=== PATIENT | female | born 1960 | race Caucasian/White ===

== ENCOUNTER 2018-05-05 12:08 | Emergency (ER) | payer OTHER, BC ==
[~2018-05-05] VITALS: Ht 167.6 cm; Wt 102.1 kg
[~2018-05-05 12:08] MED LIST: ALORA TD; HYDR-3714 PO; MELO-195 PO; OMEP20CA12 PO; TRAM50TA2 PO; [UNRECOGNIZED DRUG - OTHER]
--- OUTSIDE RECORDS SUMMARY | 2018-05-05 13:25 | XMS REPORT | Continuity of Care Document ---
Author Author [facility] Organization [facility] Address Unknown Phone Unavailable Allergies Active Description Code Type Severity Reaction Onset Reported/Identified Relationship to Patient Clinical Status Yes No Known Drug Allergies [id number] Drug Allergy Unknown N/A 12/23/2009 Medications There is no data. Problems Date Dx Coded Attending Type Code Diagnosis Diagnosed By 12/29/2009 Ot 726.10 12/29/2009 Ot 727.61 04/10/2010 Ot 401.9 04/10/2010 Ot 719.41 04/10/2010 Ot V57.1 04/10/2010 Ot V58.43 08/18/2012 Ot 455.0 08/18/2012 Ot 455.3 08/18/2012 Ot 530.11 08/18/2012 Ot 535.40 08/18/2012 Ot 562.10 08/18/2012 Ot 792.1 08/18/2012 Ot V16.0 08/18/2012 Ot V76.51 07/02/2013 CHHAYA DIAZ MD Ot 717.7 01/07/2014 CHHAYA DIAZ MD Ot 717.7 01/07/2014 CHHAYA DIAZ MD Ot 727.83 04/11/2015 Ot 715.91 04/11/2015 Ot 719.41 04/11/2015 Ot 959.9 04/11/2015 Ot E000.8 04/11/2015 Ot E030 04/11/2015 Ot E849.0 04/11/2015 Ot E888.9 04/11/2015 Ot 727.61 04/11/2015 Ot V72.83 04/11/2015 Ot V74.8 04/11/2015 Ot 620.9 04/11/2015 Ot 626.2 04/11/2015 Ot 793.5 04/11/2015 Ot V76.12 04/11/2015 Ot 625.8 04/11/2015 Ot V72.84 04/11/2015 CHHAYA DIAZ MD Ot 717.7 04/11/2015 CHHAYA DIAZ MD Ot V72.84 04/11/2015 CHHAYA DIAZ MD Ot V74.8 04/11/2015 CHHAYA DIAZ MD Ot 717.9 04/11/2015 CHHAYA DIAZ MD Ot 733.92 04/11/2015 CHHAYA DIAZ MD Ot V72.83 04/11/2015 CHHAYA DIAZ MD Ot V74.8 Procedures There is no data. Results There is no data. Encounters ACCT No. Visit Date/Time Discharge Status Pt. Type Provider Facility Loc./Unit Complaint [id number] 02/05/2015 15:19:00 02/05/2015 23:59:59 CLS Outpatient JONATHAN CATALAN [facility] OCC FELL INJURED KNEE [id number] 01/07/2014 06:09:00 01/07/2014 10:15:00 DIS Outpatient CHHAYA DIAZ MD [facility] [id number] 01/01/2014 08:08:00 01/01/2014 23:59:59 CLS Outpatient REVEAL CHHAYA MORALES [facility] PREOP [id number] 12/10/2013 16:26:00 12/10/2013 23:59:59 CLS Outpatient [id number] 07/02/2013 07:49:00 07/02/2013 14:15:00 DIS Outpatient CHHAYA DIAZ MD [facility] [id number] 06/25/2013 08:08:00 06/25/2013 23:59:59 CLS Outpatient REVEAL CHHAAY MORALES [facility] PREOP [id number] 05/31/2013 15:20:00 05/31/2013 23:59:59 CLS Outpatient [id number] 05/09/2013 15:40:00 05/09/2013 23:59:59 CLS Outpatient [id number] 04/11/2015 09:53:00 Document Registration [id number] 08/18/2012 09:18:00 Document Registration [id number] 08/16/2012 07:14:00 Document Registration [id number] 08/07/2012 07:22:00 Document Registration [id number] 07/28/2012 12:46:00 Document Registration [id number] 04/06/2010 10:51:00 Document Registration [id number] 12/29/2009 05:35:00 Document Registration [id number] 12/23/2009 07:55:00 Document Registration [id number] 10/30/2009 09:11:00 Document Registration
--- NOTE | 2018-05-05 13:36 | ED Fall/Injury ---
General Chief Complaint: Trauma-Non Activation Stated Complaint: FALL Nursing Triage Note: Pt was working driving a van with a lift. Pt's shoe got caught on lift causing pt to fall to the ground and hit forehead, nose, R hand and knee on the concrete. Pt went to occupational health first. Pt arrived to ED with steri strips acroos bridge of nose. 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 She was standing next to the wheelchair left on the van when it caught her shoe on its way up. The left elevated her foot causing her to fall injuring her face, right hand, and right knee. There was no loss of consciousness. She has a subtle blurriness in her vision with no overt signs or symptoms of concussion. She has abrasions on the bridge of her nose and her forehead. She has some minor pain over the thenar eminence of her right hand. She has some deeper pain in the right knee. She has minor abrasions to the face and is up-to-date on her tetanus immunization. She presented first to occupational health and then was directed to the emergency room for further assessment. Location Injury Occurred: work Allergies and Home Medications Allergies Coded Allergies: No Known Drug Allergies (Unverified , 12/23/09) Home Medications Hydrocodone Bit/Acetaminophen 1 Tab Tablet, 1 TAB PO PRN PRN for PAIN, (Reported ) Meloxicam 15 Mg Tablet, 15 MG PO DAILY, (Reported) Omeprazole 20 Mg Capsule.dr, 20 MG PO DAILY, (Reported) [Kavita] , 0.075 MG TD TWICE WEEKLY, (Reported) Patient Home Medication List Home Medication List Reviewed: Yes Review of Systems Review of Systems Constitutional: no symptoms reported Eyes: See HPI Ears, Nose, Mouth, Throat: no symptoms reported Respiratory: no symptoms reported Cardiovascular: no symptoms reported Gastrointestinal: no symptoms reported Genitourinary: no symptoms reported : No Musculoskeletal: see HPI Skin: see HPI Psychiatric/Neurological: No Symptoms Reported Past Dfkgaye-Ytlrgj-Vkwnjj Hx Patient Social History Alcohol Use: Denies Use Recreational Drug Use: No 2nd Hand Smoke Exposure: No Recent Foreign Travel: No Contact w/Someone Who Travel: No Recent Infectious Disease Expo: No Recent Hopitalizations: No Immunizations Up To Date Date of Influenza Vaccine: Mar 11, 2013 Past Medical History Surgeries: Yes (RIGHT KNEE SCOPE, EXPL LAP, ROTATOR CUFF, WISDOM TEETH, BREAST BX, ) Abdominal (Exploritory laparoscopy), Gallbladder, Hysterectomy, Joint Replacement, Tonsillectomy Respiratory: No Cardiac: Yes Hypertension Neurological: No : No Reproductive Disorders: No Sexually Transmitted Disease: No Gastrointestinal: No Musculoskeletal: Yes (ARTHRITIS; IN RIGHT HIP ) Endocrine: No HEENT: No Cancer: No Integumentary: No Blood Disorders: No Physical Exam Vital Signs Vital Signs - First Documented 05/05/18 12:51 Temp 97.8 Pulse 80 Resp 16 B/P (MAP) 185/128 (147) Pulse Ox 98 O2 Delivery Room Air Capillary Refill : Less Than 3 Seconds Height, Weight, BMI Height: 5'6.00" Weight: 225lbs. oz. 102.250439jl; BMI Method:Stated General Appearance: WD/WN, no apparent distress HEENT: PERRL/EOMI, TMs normal, pharynx normal, other (no dental injuries. Minor abrasions to the bridge of the nose and forehead with associated swelling. ) Neck: non-tender, supple, normal inspection Cardiovascular: regular rate, rhythm, no edema, no murmur Respiratory: lungs clear, normal breath sounds, no respiratory distress, no accessory muscle use Gastrointestinal: non tender, soft Extremities: normal inspection, no pedal edema, other (minor tenderness to palpation over the right knee and over the thenar portion of the right hand. Normal manager statistics and range of motion in the hand and wrist. 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, no motor/sensory deficits, alert, normal mood/affect, oriented x 3, other (very subtle blurry vision with no visual field cuts) Skin: normal color, warm/dry Drew Coma Score Best Eye Response: (4) Open Spontaneously Best Verbal Response: (5) Oriented Best Motor Response: (6) Obeys Commands Orma Total: 15 Progress/Results/Core Measures Results/Orders My Orders Orders - TOMAS PITTMAN MD Knee, Right, 3 Views (05/05/18 13:06) Vital Signs/I&O 05/05/18 12:51 Temp 97.8 Pulse 80 Resp 16 B/P (MAP) 185/128 (147) Pulse Ox 98 O2 Delivery Room Air Blood Pressure Mean: 147 Progress Progress Note : Progress Note We discussed imaging of the right hand, right knee, and head. Patient declined imaging of the hand as she did not think it was significantly injured. We discussed risks and benefits of CT imaging of the head. Patient had no focal neurologic deficits. There was no loss of consciousness. She is under age 60 and does not take any blood thinning medications. She therefore elected to skip the CT of the head. She did however desire an x-ray of the right knee based on the pain she was experiencing. Patient was presumed to have mild concussion due to the subtle blurry vision. Diagnostic Imaging Diagonstic Imaging: Xray Plain Films/CT/US/NM/MRI: knee Comments Right knee x-ray viewed by me and report reviewed. See report below: NAME: DONALD HOANG [facility] REC#: [id number] PT STATUS: REG ER : 1960 PHYSICIAN: TOMAS PITTMAN MD ADMIT DATE: 05/05/18/ER Draft Date of Exam:05/05/18 KNEE, RIGHT, 3 VIEWS INDICATION: Fall with anterior right knee pain. TIME OF EXAM: 1:37 PM Three views of the right knee were obtained. FINDINGS: There is significant medial and patellofemoral compartmental degenerative change with joint space narrowing and marginal osteophyte formation. No fracture, dislocation or effusion is seen. IMPRESSION: Degenerative changes. No acute bony abnormality is detected. Dictated on workstation # [id number] Dict: 05/05/18 1338 Trans: 05/05/18 1341 YE [id number] Interpreted by: JUN PICKERING MD Departure Impression Primary Impression: Fall on same level Qualified Codes: W18.30XA - Fall on same level, unspecified, initial encounter Additional Impressions: Facial contusion Qualified Codes: S00.83XA - Contusion of other part of head, initial encounter Right hand pain Right knee pain Qualified Codes: M25.561 - Pain in right knee Concussion Qualified Codes: S06.0X0A - Concussion without loss of consciousness, initial encounter Abrasion of face Qualified Codes: S00.81XA - Abrasion of other part of head, initial encounter Disposition: 01 HOME, SELF-CARE Condition: Stable Departure-Patient Inst. Decision time for Depature: 13:45 Referrals: JONATHAN CATALAN (PCP) Primary Care Physician Patient Instructions: Concussion, Adult (DC) Add. Discharge Instructions: Return to care if you have worsening symptoms. You may ice affected areas in 20 minute intervals over the next day or 2. You may apply antibiotic ointment to your abrasions if desired. You may continue taking Mobic and Tylenol for pain. Rest in a calm environment for the remainder of the day. Then gradually advance activity as tolerated. If any activity causes concussion symptoms such as confusion, blurry vision, worsening headache, irritability, nausea, etc., then please stop that activity and rest. Avoid any activity that would predispose you to head injury such as use of heights, bike riding, contact sports, etc. until at least one week after any concussion symptoms have resolved. All discharge instructions reviewed with patient and/or family. Voiced understanding. TOMAS PITTMAN MD May 05, 2018 13:36
--- NOTE | 2018-05-05 13:41 | Diagnostic Imaging Report ---
INDICATION: Fall with anterior right knee pain. TIME OF EXAM: 1:37 PM Three views of the right knee were obtained. FINDINGS: There is significant medial and patellofemoral compartmental degenerative change with joint space narrowing and marginal osteophyte formation. No fracture, dislocation or effusion is seen. IMPRESSION: Degenerative changes. No acute bony abnormality is detected. Dictated by: Dictated on workstation # [id number]
[2018-05-05 14:30] VITALS: BP 185/128
== END 2018-05-05 14:26 | disposition home or self-care (01) ==
LOC: EDUNIT# 12:08 → ER 12:09
DX: S06.0X0A Concussion without loss of consciousness, initial encounter (principal); M79.641 Pain in right hand; M25.561 Pain in right knee; R40.2142 Coma scale, eyes open, spontaneous, at arrival to emergency department; R40.2252 Coma scale, best verbal response, oriented, at arrival to emergency department; R40.2362 Coma scale, best motor response, obeys commands, at arrival to emergency department; I10 Essential (primary) hypertension; Z90.89 Acquired absence of other organs; Z90.710 Acquired absence of both cervix and uterus; V58.4XXA Person boarding or alighting a pick-up truck or van injured in noncollision transport accident, initial encounter; Y92.59 Other trade areas as the place of occurrence of the external cause; Y99.0 Civilian activity done for income or pay
CPT/HCPCS: 73562

== ENCOUNTER → 2018-05-12 | Outpatient (REF) ==
--- NOTE | 2018-05-12 09:34 | Diagnostic Imaging Report ---
INDICATION: Right wrist pain AP, oblique, and lateral views of the right wrist are obtained. No fracture or acute bony abnormality is seen. There is mild degenerative change of first carpometacarpal joint. IMPRESSION: No acute fracture or acute bony abnormality. There is mild degenerative change of the first carpometacarpal joint. Dictated by: Dictated on workstation # [id number]
== END | disposition home or self-care (01) ==
LOC: RAD 09:08
PROVIDERS: ATTEND Nurse Practitioner Family
CPT/HCPCS: 73110

== ENCOUNTER → 2018-05-16 | Outpatient (REF) | END | disposition home or self-care (01) | LOC: RAD 10:03 | PROVIDERS: ATTEND Nurse Practitioner Family ==

== ENCOUNTER → 2018-05-16 | Outpatient (REF) ==
--- NOTE | 2018-05-16 09:33 | Diagnostic Imaging Report ---
INDICATION: Facial trauma. AP and lateral views of the nasal bones do not show any displaced fractures. IMPRESSION: Negative nasal bones. Dictated by: Dictated on workstation # [id number]
--- NOTE | 2018-05-16 14:48 | Diagnostic Imaging Report ---
PROCEDURE: MRI right joint upper extremity without contrast. TECHNIQUE: Multiplanar, multisequence non contrast-enhanced MRI of the right upper extremity was accomplished. INDICATION: Injury, lateral wrist pain. FINDINGS: There are no prior MRI examinations available for comparison. The plain film examination of the right wrist performed on 05/12/2018 failed to show any sign of an acute bony abnormality. On this study, however, there is a poorly defined area of diminished signal involving much of the greater multangular bone (trapezium). I do suspect that this abnormal signal is related to bone edema from a nondisplaced fracture. There is no other abnormal signal arising from the osseous structures to suggest bone edema or fracture. There are small benign-appearing cysts in the lesser multangular bone, the capitate bone, and the lunate bone. There is no evidence for avascular necrosis. The major ligaments and tendons appear to be intact. There is mild degenerative disease of the radiocarpal joint. There is no solid mass or ganglion cyst identified. IMPRESSION: 1. The abnormal signal involving much of the greater multangular bone (trapezium) does suggest bone edema. Most likely, this is related to a nondisplaced fracture and/or contusion. 2. There is no acute bony abnormality identified otherwise and there is no sign of avascular necrosis. 3. The major ligaments and tendons appear to be intact. 4. There is no mass or ganglion cyst identified. Dictated by: Dictated on workstation # [id number]
== END | disposition home or self-care (01) ==
LOC: RAD 08:58
PROVIDERS: ATTEND Nurse Practitioner Family
CPT/HCPCS: 70160; 73221

== ENCOUNTER → 2019-12-14 | Outpatient (CLI) | payer BC | LOC: LABNPT 08:50 | PROVIDERS: ATTEND Orthopaedic Surgery | DX: Z01.812 Encounter for preprocedural laboratory examination (principal); M17.10 Unilateral primary osteoarthritis, unspecified knee; Z20.828 Contact with and (suspected) exposure to other viral communicable diseases | CPT/HCPCS: 87635 ==

== ENCOUNTER → 2020-01-03 | Outpatient (CLI) | payer BC ==
[2020-01-03 08:10] LABS: BASOPHILS % (AUTO) 0 % (0-10); EOSINOPHILS # (AUTO) 0.5 10^3/uL (0.0-0.3); EOSINOPHILS % (AUTO) 5 % (0-10); HEMATOCRIT 40 % (35-52); HEMOGLOBIN 13.1 G/DL (11.5-16.0); LYMPHOCYTES % (AUTO) 30 % (12-44); MEAN CORPUSCULAR HEMOGLOBIN 29 PG (25-34); MEAN CORPUSCULAR HGB CONC 33 G/DL (32-36); MEAN CORPUSCULAR VOLUME 88 FL (80-99); MEAN PLATELET VOLUME 9.6 FL (7.4-10.4); MONOCYTES # (AUTO) 0.7 X 10^3 (0.0-1.0); MONOCYTES % (AUTO) 7 % (0-12); NEUTROPHILS # (AUTO) 5.8 X 10^3 (1.8-7.8); NEUTROPHILS % (AUTO) 58 % (42-75); PLATELET COUNT 327 10^3/uL (130-400); RED CELL DISTRIBUTION WIDTH 12.1 % (10.0-14.5)
[2020-01-03 08:21] LABS: ALBUMIN 4.6 GM/DL (3.2-4.5); CHLORIDE 99 MMOL/L (98-107); POTASSIUM 3.1 MMOL/L (3.6-5.0); SODIUM 137 MMOL/L (135-145)
[2020-01-03 08:23] LABS: CALCIUM 10.1 MG/DL (8.5-10.1); TRIGLYCERIDES 215 MG/DL (<150); VLDL CHOLESTEROL 43 MG/DL (5-40)
[2020-01-03 08:24] LABS: GLUCOSE 108 MG/DL (70-105); TOTAL PROTEIN 8.2 GM/DL (6.4-8.2)
[2020-01-03 08:25] LABS: CARBON DIOXIDE 24 MMOL/L (21-32)
[2020-01-03 08:26] LABS: BILIRUBIN,TOTAL 0.6 MG/DL (0.1-1.0)
[2020-01-03 08:27] LABS: ALKALINE PHOSPHATASE 82 U/L (40-136); CREATININE SERUM 1.19 MG/DL (0.60-1.30); GFR ESTIMATED 46
[2020-01-03 08:28] LABS: CHOLESTEROL 222 MG/DL (< 200)
[2020-01-03 08:29] LABS: BUN/CREATININE RATIO 18
[2020-01-03 08:30] LABS: HDL CHOLESTEROL 43 MG/DL (40-60)
[2020-01-03 08:31] LABS: ALANINE AMINOTRANSFERASE 23 U/L (0-55)
--- NOTE | 2020-01-03 11:39 | Diagnostic Imaging Report ---
EXAM: Bilateral screening mammogram COMPARISON: 07/28/2012. TECHNIQUE: The current study was also evaluated with a Computer Aided Detection (CAD) system. There are no current complaints. FINDINGS: There are scattered fibroglandular densities in both breasts which could obscure a lesion. There has been some fatty involution of the breast tissue in the interval since the prior exam. The overall appearance of the breasts has not changed adversely however. There is no primary or secondary sign of malignancy noted. The stereotactic clip in the lateral aspect of the left breast seen previously is again evident and no different. IMPRESSION: 1. There is no evidence for malignancy. 2. The patient should have her annual bilateral screening mammogram on schedule in December 2020. ACR BI-RADS Category 1: Negative. Result letter will be mailed to the patient. Note: At least 10% of breast cancer is not imaged by mammography. Dictated by: Dictated on workstation # [id number]
== END ==
LOC: RAD 07:31
PROVIDERS: ATTEND Physician Assistant
DX: Z00.00 Encounter for general adult medical examination without abnormal findings (principal); Z12.31 Encounter for screening mammogram for malignant neoplasm of breast; K21.9 Gastro-esophageal reflux disease without esophagitis; I10 Essential (primary) hypertension; M19.90 Unspecified osteoarthritis, unspecified site
CPT/HCPCS: 36415; 77063; 77067; 80053; 80061; 84443; 85025

== ENCOUNTER → 2020-01-14 | Outpatient (CLI) | payer BC ==
[2020-01-14 16:32] LABS: POTASSIUM 3.7 MMOL/L (3.6-5.0)
[2020-01-14 16:33] LABS: CALCIUM 9.9 MG/DL (8.5-10.1)
[2020-01-14 16:38] LABS: CREATININE SERUM 1.01 MG/DL (0.60-1.30)
== END ==
LOC: LAB 15:56
PROVIDERS: ATTEND Internal Medicine
DX: I10 Essential (primary) hypertension (principal)
CPT/HCPCS: 36415; 80048

== ENCOUNTER 2020-01-18 10:58 | Outpatient (RCR) | payer BC | END 2020-01-18 11:31 | disposition home or self-care (01) | PROVIDERS: ATTEND Orthopaedic Surgery | DX: Z47.1 Aftercare following joint replacement surgery (principal); Z96.651 Presence of right artificial knee joint ==

== ENCOUNTER → 2020-05-02 | Outpatient (CLI) | payer BC | LOC: LABNPT 05:23 | PROVIDERS: ATTEND Orthopaedic Surgery | DX: Z01.812 Encounter for preprocedural laboratory examination (principal); Z20.828 Contact with and (suspected) exposure to other viral communicable diseases | CPT/HCPCS: 87635 ==

== ENCOUNTER → 2020-05-09 | Outpatient (CLI) | payer BC | LOC: LABNPT 08:29 | PROVIDERS: ATTEND Orthopaedic Surgery | DX: Z01.812 Encounter for preprocedural laboratory examination (principal); Z20.828 Contact with and (suspected) exposure to other viral communicable diseases | CPT/HCPCS: 87635 ==

== ENCOUNTER 2020-06-27 10:45 | Outpatient (RCR) | payer BC | END 2020-08-04 10:10 | disposition home or self-care (01) | PROVIDERS: ATTEND Orthopaedic Surgery | DX: M17.12 Unilateral primary osteoarthritis, left knee (principal); Z96.652 Presence of left artificial knee joint ==

== ENCOUNTER → 2021-01-05 | Outpatient (CLI) | payer BC ==
--- NOTE | 2021-01-06 12:40 | Diagnostic Imaging Report ---
INDICATION: Routine screening. Comparison is made with prior mammogram 01/03/2020. 2-D and 3-D bilateral screening mammography was performed with CAD. Scattered fibroglandular densities are identified bilaterally. Stereotactic clip left breast is again noted. There are benign calcification. No spiculated mass or malignant appearing microcalcifications are seen. Axillae are unremarkable. IMPRESSION: BI-RADS Category 2 No mammographic features suspicious for malignancy are identified. ACR BI-RADS Category 2: Benign findings. Result letter will be mailed to the patient. Note: At least 10% of breast cancer is not imaged by mammography. Dictated by: Dictated on workstation # [id number]
== END ==
LOC: RAD 15:00
PROVIDERS: ATTEND Physician Assistant
DX: Z12.31 Encounter for screening mammogram for malignant neoplasm of breast (principal)
CPT/HCPCS: 77063; 77067

== ENCOUNTER 2022-11-17 06:48 | Outpatient (CLI) | payer BC ==
[~2022-11-17] VITALS: Ht 167.6 cm; Wt 100.1 kg
[2022-11-17] MEDS ORDERED: LOSA100T57 PO (10:10)
[2022-11-17] MEDS ORDERED: PANT40TA52 PO (10:10)
[2022-11-17] MEDS ORDERED: CHLO25TA22 PO (10:10)
[2022-11-17] MEDS ORDERED: ESTR-141 TD (10:10)
== END 2022-11-17 10:21 | disposition home or self-care (01) ==
LOC: PREOP 06:48
PROVIDERS: ATTEND Surgery
DX: Z01.818 Encounter for other preprocedural examination (principal)

== ENCOUNTER 2022-11-24 12:12 | Day surgery (SDC) | payer BC ==
[~2022-11-24] VITALS: Ht 167 cm; Wt 100.1 kg
[~2022-11-24 12:12] MED LIST changes: +CHLO25TA22 PO; +ESTR-141 TD; +LOSA100T57 PO; +PANT40TA52 PO
[2022-11-24] MEDS ORDERED: ONDANSETRON 4 MG (ZOFRAN) ORAL DISSOLVE TAB PO PRN (12:15)
[2022-11-24] MEDS ORDERED: ONDANSETRON 4 MG/2 ML (SDV) Z0FRAN IVP PRN (12:15)
--- NOTE | 2022-11-24 12:15 | Progress Note-Pre Operative ---
Pre-Operative Progress Note Date of Available H&P: November 24, 2022 Date H&P Reviewed: November 24, 2022 Time H&P Reviewed: 12:15 History & Physical: No changes noted Pre-Operative Diagnosis: GERD, screening o NEW SINGLETON MD November 24, 2022 12:15
--- NOTE | 2022-11-24 12:16 | Discharge Inst-Surgical ---
D/C Lap Instructions-ARELI Follow Up Activity as tolerated High Fiber Diet 25g or more per day Avoid Alcohol, Caffeine, Spicy [place] and Acid foods. Drink 64 fluid oz or more of fluids per day. Symptoms to Report: Fever over 101 degree F, Nausea/Vomiting If any problems/questions: Contact your physician or go to Emergency Room NEW SINGLETON MD November 24, 2022 12:16
[2022-11-24] MEDS ORDERED: LACTATED RINGERS 1,000 ML IV STA (12:17)
[2022-11-24] MEDS ORDERED: LIDOCAINE JELLY 2% 6 ML SYRINGE MM PRN (12:30)
[2022-11-24 12:35] VITALS: BP 138/86
[2022-11-24] MEDS ORDERED: PROPOFOL INJECTION 50 ML IV ONE ×2 (13:00→13:44)
[2022-11-24] MEDS ORDERED: MIDAZOLAM 2 MG/2 ML (VERSED) VIAL ONE (13:00)
[2022-11-24] MEDS ORDERED: LIDOCAINE JELLY 2% 6 ML SYRINGE ONE (13:02)
[2022-11-24 14:00] VITALS: BP 102/59
[2022-11-24 14:05] VITALS: BP 99/55
[2022-11-24 14:15] VITALS: BP 89/53
--- NOTE | 2022-11-24 14:17 | Progress Note-Post Operative ---
Post-Operative Progess Note Surgeon (s)/Molding And Trim Installer (s) Surgeon NEW SINGLETON MD Molding And Trim Installer: none Pre-Operative Diagnosis GERD, screening colo Post-Operative Diagnosis reflux esophagitis(grade B), moderate HH(3cm), moderate gastritis. chronic stage 2 ext and stage 3 int hemorrhoids, moderate sigmoid diverticulosis. Procedure & Operative Findings Date of Procedure 11/24/22 Procedure Performed/Findings EGD with bx. Colonoscopy with bx. Anesthesia Type mac Estimated Blood Loss Estimated blood loss (mL): minimal Specimens/Packing Specimens Removed ge jxn, antrum, anal canal lesion NEW SINGLETON MD November 24, 2022 14:17
--- NOTE | 2022-11-24 14:17 | Anesthesia-General Post-Op ---
MAC Post Op Complications Complications None Follow Up Care/Instructions Patient Instructions None needed. Anesthesiology Discharge Order Discharge Order Patient is doing well, no complaints, stable vital signs, no apparent adverse anesthesia problems. No complications reported per nursing. NIRAV,KAMRON Diaz CRNA November 24, 2022 14:17
[2022-11-24 14:40] VITALS: BP 89/53
[2022-11-24] MEDS ORDERED: HURRICAINE EXT TUBE (BENZOCAINE) XX PRN (14:45)
--- NOTE | 2022-11-24 21:26 | OPERATIVE REPORT ---
DATE OF SERVICE: 11/24/2022 ATTENDING PRIMARY CARE PHYSICIAN: Jordan West MD PREOPERATIVE DIAGNOSES: Screening colonoscopy, gastroesophageal reflux disease. POSTOPERATIVE DIAGNOSES: Reflux esophagitis Jasper grade B, moderate size hiatal hernia 3 cm in size, moderate gastritis, chronic stage II external and stage III internal hemorrhoids, small lesion of the anal canal. PROCEDURE: EGD with biopsy, colonoscopy with biopsy. SURGEON: New Singleton MD ANESTHESIA: Monitored anesthesia care. ESTIMATED BLOOD LOSS: Minimal. FINDINGS: Reflux esophagitis Jasper grade B, moderate size hiatal hernia 3 cm in size, moderate gastritis, chronic stage II external and stage III internal hemorrhoids, small lesion of the anal canal. DISPOSITION: The patient tolerated the procedure well. INDICATIONS: The patient is a 62-year-old female who was referred over to us for a screening colonoscopy as well as issues with gastroesophageal reflux disease. Last colonoscopy was in 2009 and she believes this to be normal. She does state that she will have some intermittent episodes of diarrhea as well as constipation, also does notice blood in her stools on an intermittent basis, which is self limited. She also has had an issue with gastroesophageal reflux disease and is currently on Protonix daily. She does not report any issues with nausea nor vomiting as well as no hematemesis nor coffee-ground emesis. DESCRIPTION OF PROCEDURE: The patient was brought to the endoscopy suite and laid in the left lateral decubitus position. After adequate IV pain and sedative medications and monitored anesthesia care, the mouthpiece was applied. Endoscope was placed in the mouth, visualizing the pharynx and hypopharyngeal region. Vocal cords, epiglottis and vallecula identified and appeared to be normal. The endoscope was then gently intubated into the esophageal opening and esophagus insufflated. The endoscope was then advanced through the first, second, third portions of esophagus; at the level of the GE junction, reflux esophagitis, Jasper grade B identified. No ulcers or strictures. A biopsy was taken at the GE junction with forceps with visualization of good hemostasis. The endoscope was then advanced in the stomach and endoscope retroflexed visualizing a moderate size hiatal hernia approximately 3 cm in size. There was a moderate severity gastritis. No formal ulcerations, polyps or any neoplasms. A biopsy was taken of the antrum to rule out H. pylori with visualization of good hemostasis. The endoscope was then advanced into the pylorus and the first and second portion of the duodenum, which appeared normal. The endoscope was then slowly withdrawn while taking a second look and suctioning of residual air with no additional findings. A digital rectal examination was performed. There was a chronic stage II external and chronic stage III internal hemorrhoids as well as a small palpable lesion within the anal canal, which may have represented a benign skin tag. The endoscope was then intubated into the anus and the rectum gently insufflated. The palpable lesion appeared to be a small polyp versus a redundant anoderm due to hemorrhoids. This was biopsied using forceps with visualization of good hemostasis. The endoscope was then advanced through the rectum and the sigmoid colon where a moderate sigmoid diverticulosis identified. The endoscope was then advanced to the remainder of the descending, transverse and ascending colon to the cecum, which were normal. No other lesions identified. The endoscope was then slowly withdrawn while taking a second look and suctioning of residual air with no additional findings. The patient tolerated the procedure well. We will recommend the necessary lifestyle and dietary accommodation. She does have a symptomatic gastroesophageal reflux disease and hiatal hernia and we will recommend a small and more frequent meals, avoidance of eating at night as well as head elevation while lying supine. Also, we will recommend risk reduction, which would encompass avoidance of caffeinated beverages, spicy, greasy and acidic foods. She is currently on Protonix; however, we will proceed with a trial of the addition of omeprazole 40 mg daily to be taken at a separate time during the day. She does also have moderate size hiatal hernia and if she continues to be symptomatic despite maximal medical therapy, she may be a candidate for hiatal hernia repair; however, due to her body mass index, this alone would be a risk prohibitive due to the high recurrence rates and we would recommend hiatal hernia in conjunction with a bariatric surgical procedure. However, we would proceed with an esophageal manometry study to rule out an esophageal dysmotility disorder beforehand. We will also recommend a high-fiber diet with addition of a fiber supplement, which should equal or exceed 30 grams daily as well as significant amounts of water to promote soft stools on a daily basis and to prevent further propagation or complications of diverticulosis. If she is asymptomatic, she does not need another colonoscopy for another 10 years. Job ID: [id number] DocumentID: [id number] Dictated Date: 11/24/2022 14:10:49 Shank Faker Date: 11/24/2022 21:24:00 Dictated By: NEW SINGLETON MD
== END 2022-11-24 14:47 | disposition home or self-care (01) ==
LOC: ENDO 12:12
PROVIDERS: ATTEND Surgery
DX: K57.30 Diverticulosis of large intestine without perforation or abscess without bleeding (principal); K62.89 Other specified diseases of anus and rectum; K21.00 Gastro-esophageal reflux disease with esophagitis, without bleeding; K44.9 Diaphragmatic hernia without obstruction or gangrene; K29.70 Gastritis, unspecified, without bleeding; K64.2 Third degree hemorrhoids; K64.4 Residual hemorrhoidal skin tags
CPT/HCPCS: 88305; 88312